=== PATIENT | female | born 1985 | race Caucasian/White ===

== ENCOUNTER 2020-05-25 20:36 | Inpatient (IN) | payer BC, SELFPAY ==
[~2020-05-25] VITALS: Ht 165.1 cm; Wt 84.1 kg
[~2020-05-25 20:36] MED LIST: DEXAMETHASONE SOD PHOSPHATE 4 MG/ML VIAL IVP ONE; LR 1,000 ML IV.SOLN IV ONE; MORPHINE SULFATE 10MG/10ML PF AMP EP ONE; NS IRRIG SOLN 1000 ML IR ONE; ONDANSETRON HCL 4 MG/2 ML VIAL IVP ONE; OXYTOCIN 10 UNIT/ML VIAL IM ONE
[2020-05-25] MEDS ORDERED: AMPICILLIN SODIUM 2 GM in NS 100 ML IV ONE (21:00)
[2020-05-25] MEDS ORDERED: FLU VACC QS2020-21 (6 mos & up) 0.5 ML/SYRINGE I.M. PRN (21:15)
[2020-05-25] MEDS ORDERED: DINOPROSTONE 10 MG SUPP VG ONE (21:15)
[2020-05-25] MEDS ORDERED: NALOXONE HCL 0.4 MG/ML AMP (NARCAN) IVP PRN (21:15)
[2020-05-25] MEDS ORDERED: LR 1,000 ML IV ONE (21:15)
[2020-05-25] MEDS ORDERED: OXYTOCIN/0.9 % SODIUM CHLORIDE 1,000 ML IV SCH (21:15)
[2020-05-25] MEDS ORDERED: TERBUTALINE SULFATE 1 MG/ML VIAL SUBCUT ONE (21:15)
[2020-05-25] MEDS ORDERED: MORPHINE SULFATE 10 MG/ML VIAL IVP PRN (21:15)
[2020-05-25 21:21] LABS: BASOPHILS % (AUTO) 0.4 % (0.0-2.0); EOSINOPHILS # (AUTO) 0.1 K/uL (0.0-0.4); HEMATOCRIT 38.8 % (36-48); HEMOGLOBIN 13.2 g/dL (12.0-16.0); LYMPHOCYTES # (AUTO) 2.6 K/uL (1.0-5.5); LYMPHOCYTES % (AUTO) 28.1 % (20.5-51.5); MEAN CORPUSCULAR HEMOGLOBIN 30 pg (27-31); MEAN CORPUSCULAR HGB CONC 34 % (32-36); MEAN CORPUSCULAR VOLUME 88 fL (79.0-98.0); MONOCYTES # (AUTO) 0.6 K/uL (0.0-1.0); MONOCYTES % (AUTO) 6.3 % (1.7-9.3); NEUTROPHILS # (AUTO) 5.9 K/uL (1.8-7.7); NEUTROPHILS % (AUTO) 64.2 % (40.0-70.0); PLATELET COUNT (AUTO) 213 K/uL (130-430); RED BLOOD CELL COUNT(AUTO) 4.38 MIL/uL (4.2-6.2); WHITE BLOOD COUNT (AUTO) 9.2 K/uL (4.8-10.8)
[2020-05-25] MEDS ORDERED: AMPICILLIN SODIUM 2 GM VIAL ONE (22:04)
[2020-05-25] MEDS: LR 1,000 ML IV SCH (22:14)
[2020-05-26] MEDS ORDERED: AMPICILLIN SODIUM 1 GM in NS 50 ML IV SCH ×2 (01:00→14:00)
[2020-05-26] MEDS: LR 1,000 ML IV SCH (05:34)
[2020-05-26] MEDS ORDERED: AMPICILLIN SODIUM 2 GM in NS 100 ML IV SCH (10:00)
[2020-05-26] MEDS ORDERED: AMPICILLIN SODIUM 2 GM in NS 100 ML IV ONE (10:10)
[2020-05-26] MEDS ORDERED: CEFAZOLIN 2 GM IVPB PREMIX 50 ML IV ONE (16:45)
[2020-05-26] MEDS ORDERED: ROPIVACAINE HCL/PF 0.2% 200 ML ONE (17:20)
[2020-05-26] MEDS ORDERED: fentaNYL CITRATE/PF 100 MCG/2 ML AMP ONE (17:20)
[2020-05-26] MEDS ORDERED: TERBUTALINE SULFATE 1 MG/ML VIAL ONE (18:02)
[2020-05-26 19:25] VITALS: BP_SYST 123
[2020-05-26] MEDS ORDERED: ONDANSETRON HCL 4 MG/2 ML VIAL IVP PRN (19:30)
[2020-05-26] MEDS ORDERED: DIPHENHYDRAMINE INJ 50 MG/ML VIAL IVP PRN (19:30)
[2020-05-26] MEDS ORDERED: MEASLES,MUMPS&RUBELLA VACC/PF 12500 UNIT/0.5 ML VIAL SUBQ PRN (19:45)
[2020-05-26] MEDS ORDERED: OXYCODONE/ACETAMINOPHEN 5-325 TABLET PO PRN (19:45)
[2020-05-26] MEDS ORDERED: RHO(D) IMMUNE GLOBULIN/MALTOSE 1500 UNITS/1.3 ML (WINHRO) IM PRN (19:45)
[2020-05-26] MEDS ORDERED: DIPH-TET-PERTUS Vaccine 0.5 ML VIAL (ADACEL) I.M. PRN (19:45)
[2020-05-26] MEDS ORDERED: TEMAZEPAM 15 MG CAPSULE PO PRN (19:45)
[2020-05-26] MEDS ORDERED: LANOLIN 7 GM OINT. TP PRN (19:45)
[2020-05-26] MEDS ORDERED: HYDROcodone/ACETAMIN 5-325 MG TAB (NORCO/ VICODIN) PO PRN (19:45)
[2020-05-26] MEDS ORDERED: SIMETHICONE 80 MG TAB.CHEW PO PRN (19:45)
[2020-05-26] MEDS ORDERED: ANUSOL 1 EA SUPP.RECT (PREPARATION H) RC PRN (19:45)
[2020-05-26] MEDS ORDERED: LR 1,000 ML IV SCH (19:45)
[2020-05-26] MEDS ORDERED: BISACODYL 10 MG/SUPPOSITORY RC PRN (19:45)
[2020-05-26] MEDS ORDERED: SENNOSIDES/DOCUSATE SODIUM 1 TAB TABLET(SENOKOT-S) PO PRN (19:45)
[2020-05-26] MEDS ORDERED: DOCUSATE SODIUM 100 MG CAPSULE PO PRN (19:45)
[2020-05-26] MEDS ORDERED: OXYCODONE/ACETAMINOPHEN *10*mg/325 mg TABLET PO PRN (19:45)
[2020-05-26] MEDS ORDERED: NALOXONE HCL 0.4 MG/ML AMP (NARCAN) IVP PRN (19:45)
[2020-05-26] MEDS ORDERED: ONDANSETRON HCL 4 MG/2 ML VIAL ONE (20:10)
[2020-05-26] MEDS: OXYTOCIN/0.9 % SODIUM CHLORIDE 1,000 ML IV SCH (22:50)
[2020-05-26] MEDS: CEFAZOLIN 1 GM IVPB PREMIX 50 ML IV SCH (23:26)
[2020-05-27] MEDS: OXYTOCIN/0.9 % SODIUM CHLORIDE 1,000 ML IV SCH (05:25)
[2020-05-27] MEDS: CEFAZOLIN 1 GM IVPB PREMIX 50 ML IV SCH ×2 (05:35→12:14)
[2020-05-27] MEDS: KETOROLAC TROMETHAMINE 30 MG VIAL IVP SCH ×3 (05:37→18:10)
[2020-05-27 07:32] LABS: BASOPHILS % (AUTO) 0.2 % (0.0-2.0); HEMATOCRIT 31.7 % (36-48); HEMOGLOBIN 10.6 g/dL (12.0-16.0); LYMPHOCYTES # (AUTO) 1.8 K/uL (1.0-5.5); LYMPHOCYTES % (AUTO) 12.3 % (20.5-51.5); MEAN CORPUSCULAR HEMOGLOBIN 30 pg (27-31); MEAN CORPUSCULAR HGB CONC 33 % (32-36); MEAN CORPUSCULAR VOLUME 89 fL (79.0-98.0); MONOCYTES # (AUTO) 0.8 K/uL (0.0-1.0); MONOCYTES % (AUTO) 5.3 % (1.7-9.3); NEUTROPHILS # (AUTO) 11.8 K/uL (1.8-7.7); NEUTROPHILS % (AUTO) 82.2 % (40.0-70.0); PLATELET COUNT (AUTO) 182 K/uL (130-430); RED BLOOD CELL COUNT(AUTO) 3.57 MIL/uL (4.2-6.2); RED CELL DISTRIBUTION WIDTH 14.1 % (9.0-15.0); WHITE BLOOD COUNT (AUTO) 14.4 K/uL (4.8-10.8)
[2020-05-27] MEDS ORDERED: TERBUTALINE SULFATE 1 MG/ML VIAL SUBCUT ONE (13:02)
[2020-05-27] MEDS: IBUPROFEN 600 MG TABLET PO SCH (23:24)
[2020-05-28] MEDS: IBUPROFEN 600 MG TABLET PO SCH (06:03)
== END 2020-05-28 16:50 | disposition home or self-care (01) | DRG 788 ==
LOC: SPU 20:36
PROVIDERS: ADMIT Specialist; ATTEND Specialist
PROC: 3E0P7VZ Introduction of Hormone into Female Reproductive, Via Natural or Artificial Opening (ICD-10-PCS; 2020-05-26)
PROC: 3E033VJ Introduction of Other Hormone into Peripheral Vein, Percutaneous Approach (ICD-10-PCS; 2020-05-26)
PROC: 10D00Z1 Extraction of Products of Conception, Low, Open Approach (ICD-10-PCS; principal; 2020-05-26 18:00)
DX: O76 Abnormality in fetal heart rate and rhythm complicating labor and delivery (principal); O69.1XX0 Labor and delivery complicated by cord around neck, with compression, not applicable or unspecified; Z20.828 Contact with and (suspected) exposure to other viral communicable diseases; O64.0XX0 Obstructed labor due to incomplete rotation of fetal head, not applicable or unspecified; O48.0 Post-term pregnancy; Z3A.42 42 weeks gestation of pregnancy; Z37.0 Single live birth
CPT/HCPCS: 36415; 85025; 86592; 86886; 86900; 86901; J0290; J0690; J1100; J1885; J2270; J2274; J2405; J2590; J3010; J3105; J7120; U0003